=== PATIENT | female | born 1980 | race Caucasian/White ===

== ENCOUNTER → 2017-06-19 | Day surgery (SDC) | payer OTHER ==
[~2017-06-19] VITALS: Ht 162.6 cm; Wt 93.4 kg
[2017-06-19] VITALS (10 sets, daily range): BP systolic 95–147; BP diastolic 33–98; PULSE 98–116; RESP 16–20; O2SAT 93–98
[~2017-06-19] MED LIST: AMT50T PO; Bupivacaine-MPF 0.5% 30 mL Inj INFILTRATE ONE; CYCL10TA9 PO; CeFAZolin Inj 2 GM in IV Premix 1 EACH IV ONE; CeFAZolin Inj 2 GM in IV Premix 1 EACH IV SCH; Dexamethasone 4 mg/mL Inj IVPUSH PRN; Dexamethasone 4 mg/mL Inj ONE; EPHEDrine Sulfate 50 mg/mL Inj IVPUSH PRN; Furosemide 10 mg/mL 4 mL Inj ONE; Glycopyrrolate 0.2 MG/ML 1mL Inj ONE; HYDROmorphone 1 mg/mL Inj ONE; LISI-567 PO; Lactated Ringer's 1,000 ML IV SCH; Lactated Ringer's 500 ML IV PRN; MetoCLOpramide 5 mg/mL 2 mL Inj IVPUSH PRN; Neostigmine 1 mg/mL 10 mL Inj ONE; Ondansetron 2 mg/mL 2 mL Inj IVPUSH PRN; Ondansetron 2 mg/mL 2 mL Inj ONE; Phenylephrine 10,000 mCg/mL Inj IVPUSH PRN; Propofol 10,000 mCg/mL 20 mL Inj ONE; RANI150C4 PO; RIZA5TAB18 PO; Rocuronium 10 mg/mL 5 mL Inj ONE; SERT100T9 PO; [UNRECOGNIZED DRUG - CODE] PO; diphenhydrAMINE 25 mg Capsule PO PRN; fentaNYL-PF 50 mCg/mL 2 mL Inj ONE; oxyCODONE-Acetamin 5-325 mg Tablet PO PRN
[2017-06-19] MEDS: Lactated Ringer's 1,000 ML IV SCH ×2 (09:35→11:16)
--- NOTE | 2017-06-19 12:08 | PCM.HPANE ---
Patient Data Date of Service: Jun 19, 2017 Surgeon Admitting Provider: Attending Provider:Luis Fernando Cohn MD Primary Care Physician:Joyce Timmons DO Other Provider:García Elmore Anesthesia Reason for Visit Abnormal Uterine And Vaginal Bleeding Ht/WT & BMI Height (Feet): 5 Height (Inches): 4 Weight (Kilograms): 93.4 Body Mass Index 35.00 Allergies Coded Allergies: Sulfa (Sulfonamide Antibiotics) (Verified Allergy, Unknown, anaphylaxis, ) sulfamethoxazole (Verified Allergy, Unknown, 06/11/17) trimethoprim (Verified Allergy, Unknown, 06/11/17) Past Anesthesia History Anesthesia History: Denies:: Abnormal Airway, Anesthesia Reactions (epidural for childbirth only affected one side ), Difficult Intubation, Fam Anesthesia Reaction, Malignant Hyperthermia Diabetes History Hx Diabetes?: No MRSA MRSA: No Medications Hypertension Medication: Yes Home Meds Incl Beta Carmen: No Reported Medications Lisinopril 20 Mg [id number] Mg PO HS #30 06/19/17 Sertraline HCl (Sertraline)100 Mg [id number] Mg PO DAILY 30 Days Ref 0 06/11/17 Rizatriptan ODT (Rizatriptan)5 Mg Tablet5 Mg PO Q2H PRN migraine NTE 10mg/24h 06/11/17 Ranitidine 150 Mg [id number] Mg PO BID Ref 0 06/11/17 Noreth A-Et Estra/Fe Fumarate (Loestrin Fe 1-20 Tablet)1 Each Tablet1 Each PO DAILY #1 PKG Ref 0 06/11/17 Cyclobenzaprine 10 Mg [id number] Mg PO TID PRN Spasm 06/11/17 Amitriptyline 50 Mg [id number] Mg PO HS Ref 0 06/11/17 History History of ENT Problems?: Yes HEENT History: Positive for:: TMJ (grinds, no nightguard) Denies:: Abnormal Airway Cataracts Difficult Intubation Dysphagia Glaucoma Hearing Problem Sinus Problem Denture Type: Full- Upper Full- Lower Teeth Condition: No Teeth Hx of Heart Problems?: Yes Cardiovascular History: Positive for:: Hypertension Denies:: AICD Abdominal Aortic Aneurism Atrial Fibrillation Cardiac Surgery Chest Pain Congestive Heart Failure Heart Murmur Irregular Heartbeat Pacemaker Peripheral Vascular Hx of Respiratory Problem?: No Respiratory History: Denies:: Asthma Cough Oxygen Administration Pneumonia Tuberculosis Use of C-PAP Machine (sleep study done- no CPAP recommended) Hx Neurologic Problems?: Yes Neurological History: Positive for:: Headaches (once every two to four weeks) Denies:: CVA Multiple Sclerosis Parkinson's Disease Seizures Hx of GI Problems?: Yes Hx of Problems?: Yes Genitourinary History: Positive for:: Kidney Stones (hx of, passed spontaneously ) Denies:: Urinary Tract Infection Female Hx: Denies:: Currently (hx tubal ligation) Problems with Breasts? Skin History: Denies:: History Skin Disorders? Pressure Ulcers Hx Musculoskeletal Problems?: Yes Musculoskeletal History: Positive for:: Musculoskeletal Trauma (PT currently for crooked hips) Denies:: Back Injury (cervical neck problem) Fibromyalgia Joint Replacement Osteoarthritis Rheumatoid Arthritis Systemic Lupus Hx of Psycho/Social Problems?: Yes Psycho Social History: Positive for:: Hx Depression Denies:: Anxiety Hx Surgeries?: Yes (LEEP PROCEDURE,I&D VAGINAL HEMATOMA/VAGINAL RPR,LTL) Hx Any Other Health Problems?: Yes Other History: Positive for:: Cancer (cervical cancer (LEEP done)) Denies:: Endocrine Disease Hospitalization Thyroid Disease History Blood Transfusions: Positive for:: Accept Blood Products? Denies:: Blood Transfusions Hx Diabetes: No Hx Alcohol Use: NoHx Substance Use: No Smoking Status: Current Every Day Smoker Have You Smoked inLast 12 mo: Yes (one pack day ) Stop/Bang Treated for Sleep Apnea?: No Do You Have a CPAP Machine?: No S-Snoring: Do You Snore Loudly: Yes T-Tired: feel tired, fatigued: No O-Obsered: Observed not breath: No P-Blood Pressure: treated: No B- Body Mass Index > 35 kg/m2: Yes A- Age over 50: No N- Neck Large Circumference: No G- Gender Male: No RL Total Score: 2 RL Risk Assessment: Low Risk, <3 Yes Risk Assessment Category Category 1A: Patient has history of documented sleep apnea, and HAS NOT received any narcotic, sedative or anesthesia administration during this stay. Category 1B: Patient has history of documented sleep apnea, and HAS received any narcotic , sedative or anesthesia administration during this stay Category 2: Patient has SUSPECTED Obstructive Sleep Apnea, and HAS received any narcotic , sedative or anesthesia administration during this stay. Category 3: Patient has SUSPECTED Obstructive Sleep Apnea and HAS NOT received narcotic, sedative or anesthesia administration during this stay. Category 4: Outpatient in Procedural Areas with known sleep apnea or who screen positive for High Risk via the STOP/BANG questionnaire. Exam Exam Vital Signs Vital Signs Date Time Temp Pulse Resp B/P Pulse Ox O2 Delivery O2 Flow Rate FiO2 06/19/17 10:01 36.3 104 17 147/98 97 Room Air General Appearance: Alert HEENT/AIRWAY: MP 2 Lungs: Clear to Auscultation Heart: Exam Unremarkable Meds/Labs/Diagnostics Admission Meds Current Medications Lactated Ringer's (Lr) 1,000 ml @ 120 mls/hr Q8H20M IV Last administered on t 09:35; Start 06/19/17 at 05:00; Stop 06/19/17 at 13:19 Plan Impression Patient chart reviewed, patient interviewed and anesthestic plan with risks, benefits, and alternatives discussed, and informed consent obtained. NPO per Anesth. Guidelines: Yes ASA Physical Status: ASA2 Mod Systemic Disease Anesthetic Plan: TIVA Bene/Risks/Altern/Consents: Yes HP Complete Prior to Induction: Yes Edson Purdy MD Jun 19, 2017 12:08
[2017-06-19] MEDS: fentaNYL-PF 50 mCg/mL 2 mL Inj IVPUSH PRN ×2 (13:55→14:15)
[2017-06-19] MEDS: HYDROmorphone 1 mg/mL Inj IVPUSH PRN ×3 (13:59→17:00)
--- NOTE | 2017-06-19 14:16 | PCM.DIMED ---
Discharge Instructions Date of Service Jun 19, 2017 Dates of Hospitalization Diet Discharge Diet: No restrictions Activity Discharge Activity: No restrictions Call your provider Call your provider for: Fever or Chills, Shortness of breath, Bleeding, Chest pain, Vomitting, Excessive diarrhea, Weakness (unilateral) Patient Instructions Follow-up with PCP in: 2 weeks Luis Fernando Cohn MD Jun 19, 2017 14:16
--- NOTE | 2017-06-19 15:15 | PCM.ANEP1 ---
Post Anesthesia PACU Phase 1 Assessment Vital Signs Vital Signs Date Time Temp Pulse Resp B/P Pulse Ox O2 Delivery O2 Flow Rate FiO2 06/19/17 14:36 116 16 99/54 93 Nasal Cannula 2 06/19/17 14:29 36.8 115 18 112/54 94 Nasal Cannula 2 06/19/17 14:15 109 19 114/79 94 Nasal Cannula 2 06/19/17 14:00 105 18 97/63 95 Nasal Cannula 2 06/19/17 13:56 101 19 95/33 97 Nasal Cannula 2 06/19/17 13:50 101 19 95/75 98 Nasal Cannula 2 06/19/17 13:43 36.1 101 20 139/66 98 Nasal Cannula 2 06/19/17 10:01 36.3 104 17 147/98 97 Room Air Anesthetic Administered: TIVA Level of Alertness: Awake, talking Pain: Yes Pain Scale Score: 5 Nausea or Vomiting: No CV Function & Hydration Stable: Yes Airway Device: Oxygen Delivery: Nasal Cannula Lungs: Clear to Auscultation PACU Phase 2 Assessment Patient Instructions Provided: N/A Edson Purdy MD Jun 19, 2017 15:15
--- NOTE | 2017-06-20 05:51 | OP ---
[address] [address] OPERATIVE REPORT PATIENT: MICK WELLS : 1980 MR#: [id number] ADMIT: 06/19/2017 JOB ID: [id number] DATE OF SURGERY: 06/19/2017 PROCEDURE: Total laparoscopic hysterectomy with bilateral salpingectomy. PREOPERATIVE DIAGNOSIS(ES): Abnormal uterine bleeding. POSTOPERATIVE DIAGNOSIS(ES): Abnormal uterine bleeding; pathology pending. SURGEON: Luis Fernando Cohn MD CUSTOMS OFFICER: Linwood Tran MD Assistance of Dr. Tran was necessary for proper retraction, visualization of anatomic structure, and manipulation of the tissue during the procedure. ANESTHESIA: General. ESTIMATED BLOOD LOSS: 20 mL. ESTIMATED URINE OUTPUT: 300 mL. FLUIDS: 500 mL of lactated Ringer. COMPLICATIONS: None. FINDINGS: Normal appearance of the perineum, vagina, uterus, and adnexa. The cervix was irregular. The fallopian tubes were transected before as a result of prior bilateral tubal ligation. DESCRIPTION OF PROCEDURE: The patient was brought to the operating room, where she underwent general anesthesia without difficulties. The patient was put in a dorsal lithotomy position using Gilbert stirrups. She was prepped and draped in the usual surgical fashion. She received preoperative antibiotics. Time-out was performed, verifying correct patient, correct procedure. Pelvic exam was performed. The uterus was palpated to be mid-positioned, mobile, normal in size. The Abraham catheter was placed preoperatively, and a mid-size VCare uterine manipulator was placed. Attention was directed then to the patient's abdomen, where a periumbilical injection of Marcaine was administered, and a Veress needle was introduced. CO2 gas was insufflated with appropriate pneumoperitoneum achieved. The mid-umbilical 5 mm vertical skin incision was made, and a 5 mm trocar was placed through the incision. The pelvis was visualized with a 30-degree scope, with the findings mentioned above. Two additional skin incisions were made in the right and left lower quadrants, 5 cm superiorly and medially from the superior-anterior iliac spine. Five mm trocars were placed through the incision. Using GrivyerMicrobondsat instrument, the patient's left fallopian tube was dissected from the mesosalpinx and sent to Pathology. The same was done on the patient's contralateral side. With the Thunderbeat instrument, the patient's left utero-ovarian ligament and round ligament were transected. Further dissection was done along the broad ligament anterior and posterior leaves until the lower portion of the uterus was reached. The left uterine artery was skeletonized, transected, and ligated with a Thunderbeat. The same was done on the patient's contralateral side. Blanching of the fundus of the uterus indicated good transection and interruption of blood supply. The anterior lower segment dissection of the peritoneum was performed, and the bladder flap was created. The bladder was moved away from the lower uterine segment. Using a Thunderbeat instrument, circumferential incision was made posteriorly over the pouch of Matt, the cervix from the vaginal cuff, and the same anteriorly until the specimen uterus and the cervix where from the vagina, removed vaginally, and sent to Pathology. Insufflated surgical glove was placed vaginally to maintain pneumoperitoneum. Attention was then directed to the patient's abdominal parts, where V-Loc 2-0 suture was introduced, and the vaginal cuff was reapproximated with V-Loc in two layers. Good hemostasis was achieved. The pelvis was irrigated with warm normal saline. Series of images were obtained. Pneumoperitoneum was desufflated, and the trocar instruments were removed. The trocar skin incisions were reapproximated with 4-0 Monocryl. The cystoscopy was performed. The patency of both ureters was confirmed. The bladder mucosa and the rest of the bladder and urethra looked normal. The bladder was drained. The Abraham catheter was not replaced. Hemostatic dressings were applied over the area of trocar skin incisions. The patient tolerated the procedure well and was transferred to the recovery room in stable condition.
--- NOTE | 2017-06-26 12:26 | PATH ---
SURGICAL PATHOLOGY Attending Physician:Luis Fernando Cohn MD CASE STATUS: Signed Out PATIENT NAME: MICK WELLS PID: [id number] : 1980 DATE COLLECTED:06/19/2017 00:00 SPECIMEN: 1: Fallopian Tube, Biopsy 2: Fallopian Tube, Biopsy 3: Uterus +/- tubes/ovaries, except neoplastic, prolapse CLINICAL HISTORY: ABNORMAL UTERINE BLEEDING, DYSMENORRHEA, EXCISION 1). LEFT FALLOPIAN TUBE 2). RIGHT FALLOPIAN TUBE 3). UTERUS FINAL DIAGNOSIS: 1.LEFT FALLOPIAN TUBE, SALPINGECTOMY: - FALLOPIAN TUBE WITH INCIDENTAL BEINGN ADRENAL CORTICAL REST. See microscopic description. - NO EVIDENCE OF MALIGNANCY. 2.RIGHT FALLOPIAN TUBE, SALPINGECTOMY: - FALLOPIAN TUBE WITH NO EVIDENCE OF NEOPLASM. 3.UTERUS, HYSTERECTOMY: - WEAKLY PROLIFERATIVE/INACTIVE ENDOMETRIUM WITH A SINGLE GLAND (DEEPER LEVELS EXAMINED) WITH MUCINOUS METAPLASIA. SEE COMMENT. - NO EVIDENCE OF MALIGNANCY. - CERVIX WITH NO EVIDENCE OF NEOPLASM. COMMENT: Histologic sections of the endometrium demonstrate a single gland with mucinous metaplasia. Additional deeper levels and the entire endometrium were submitted. As part of routine cloth tester quality, the case was also reviewed by Dr. Desai who agrees with the interpretation of incidental adrenal cortical rests and endometrial gland with mucinous metaplasia. ICD10 N94.6 GROSS DESCRIPTION: The specimens are received in formalin, labeled with the patient's name, and sublabeled as the following: (1) left fallopian tube; (2) right fallopian tube; (3) uterus. Next (1) The specimen consists of a fimbriated fallopian tube (length-3.1 cm, diameter-0.5 cm) with flores smooth shiny serosa and a flores and unremarkable lumen. Section code: (1A) fallopian tube, serially sectioned, telemarketing representative; (1B) fimbria, bivalved, entirely submitted. (2) The specimen consists of a fimbriated fallopian tube (length-3.5 cm, diameter-0.5 cm) with flores smooth shiny serosa and a flores and unremarkable lumen. Section code: (2A) fallopian tube, serially sectioned, telemarketing representative; (2B) fimbria, bivalved, entirely submitted. (3) The specimen consists of a uterus (69 g, 3.7 cm AP, 7.5 cm SI, 5.8 cm ML). The ovaries and fallopian tubes are absent. The cervix (2.5 x 2.5) has a round os and patent endocervical canal. The endometrium (average thickness-0.2 cm) is flores-white smooth and flat. The myometrium (thickness-1.6 cm) is flores-white and unremarkable. The serosa is gallardo-flores smooth and shiny. The cervix is radially sectioned and submitted clockwise beginning at 12:00. Section code: (3A-3C) cervix, 12:00-3:00; (3D-3F) cervix, 3:00-6:00; (3G-3J) cervix, 6:00-9:00; (3K-3M) cervix, 9:00-12:00; (3N, 3O) anterior endomyometrium; (3P, 3Q) posterior endomyometrium. Note: Cervix entirely submitted. 06/20/17 Additional sections: (3R-3T) remaining endometrium. Endometrium entirely submitted. 06/24/17 MICRO DESCRIPTION: Histologic sections of the left fallopian tube demonstrates a nodule composed of eosinophilic round to oval cells with round to oval nuclei and prominent nucleoli. No significant cytologic atypia is identified. No areas of necrosis or definite mitosis are identified. Immunohistochemical stain was performed to evaluate the nature of the cells and they are positive for Inhibin (diffuse) and are negative for RANJITH cytokeratin, compatible with the above diagnosis. The control stains show appropriate reactivity. This test was developed and its performance characteristics determined by [facility]. It has not been cleared or approved by the [place]. Food and Drug Administration. The FDA has determined that such clearance or approval is not necessary. This test is used for clinical purposes. It should not be regarded as investigational or for research. ICD-9 CODES: CPT CODES: 1: 47828, 45773, 38568 2: 23984 3: 37150 Electronically Signed Out Elmer Cole MD [facility] Pathology [facility] [address], [place] [address] Technical component performed at [facility], [address], [place], [address]
== END | disposition home or self-care (01) ==
LOC: SAS 09:25
PROVIDERS: ATTEND Legal Medicine
DX: N93.9 Abnormal uterine and vaginal bleeding, unspecified (principal); N94.6 Dysmenorrhea, unspecified; R10.2 Pelvic and perineal pain; N87.9 Dysplasia of cervix uteri, unspecified; I10 Essential (primary) hypertension; G89.29 Other chronic pain; F32.9 Major depressive disorder, single episode, unspecified; F17.210 Nicotine dependence, cigarettes, uncomplicated; Z86.69 Personal history of other diseases of the nervous system and sense organs; Z87.442 Personal history of urinary calculi
CPT/HCPCS: 58571; J0690; J1100; J1170; J1885; J1940; J2175; J2250; J2405; J2704; J2710; J3010; J7120